=== PATIENT | male | born 1950 | race Caucasian/White ===

== ENCOUNTER → 2020-10-24 12:58 | Outpatient (CLI) | payer MEDICARE, SELFPAY ==
--- NOTE | ~2020-10-24 | MR_ITS ---
EXAMINATION: MR lumbar spine wo con EXAM DATE: 10/24/2020 13:39 INDICATION: Worsening left-sided sciatica there is low back, left leg pain. TECHNIQUE: Multi-sequential, multiplanar MR images of the lumbar spine were obtained without contrast . Sagittal T1, T2, T2 fat saturation images. Axial T2 weighted images. There is no prior study for comparison. FINDINGS: There is 3 mm anterolisthesis L4 on L5 without spondylolysis. Severe facet arthropathy at t his level with a synovial cyst projecting internally from the left facet joint contributing to severe central canal and severe left lateral recess stenosis. Overall mild diffuse loss of disc height L1-L 5. 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 The conus medulla ris terminates at the L1/2 level and has normal signal intensity and morphology. There are no suspic ious marrow signal abnormalities. Paraspinal soft tissue is unremarkable. Level by level evaluation: T12-L1: Disc does not extend beyond the endplate margin. Facet arthropathy: None. Neural foraminal stenosis: No stenosis. Central canal stenosis: No stenosis. L1-L2: There is a mild diffuse disc bulge. Facet arthropathy: Mild. Neural foraminal stenosis: Mild left. Central canal stenosis: Mild. L2-L3: There is a minimal diffuse disc bulge. Facet arthropathy: Mild to moderate. Neural foraminal stenosis: No stenosis. Central canal stenosis: No stenosis. L3-L4: There is a mild diffuse disc bulge. Facet arthropathy: Mild to moderate. Neural foraminal stenosis: Mild bilateral. Central canal stenosis: Mild. L4-L5: There is a moderate diffuse disc bulge. Facet arthropathy: Severe. Left synovial cyst causing severe lateral recess stenosis. Neural foraminal stenosis: Moderate right, mild to moderate left. Central canal stenosis: Severe. L5-S1: There is a mild to moderate diffuse disc bulge. Facet arthropathy: Moderate right, mild to moderate left. Neural foraminal stenosis: Moderate right, mild to moderate left. Central canal stenosis: Mild. IMPRESSION: L4-5 grade 1 anterolisthesis, severe facet arthropathy and left facet synovial cyst causi ng severe central canal and lateral recess stenosis. Reviewed, dictated and finalized at location B. IMPRESSION: L4-5 grade 1 anterolisthesis, severe facet arthropathy and left fac et synovial cyst causing severe central canal and lateral recess stenosis.
== END ==
PROVIDERS: PCP Family Medicine Adolescent Medicine; Visit Provider Family Medicine Adolescent Medicine
DX: M54.42 Lumbago with sciatica, left side (principal)
CPT/HCPCS: 72148

== ENCOUNTER 2021-12-23 10:11 | Emergency (ER) | payer MEDICARE, SELFPAY ==
--- NOTE | 2021-12-23 10:13 | ED.URI ---
HPI - URI/Sore Throat General Chief Complaint: Upper Respiratory Infection Stated Complaint: cough, headache Time Seen by Provider: 12/23/21 10:13 Source: patient Mode of arrival: ambulatory Limitations: no limitations History of Present Illness HPI Narrative: Mr. Arias is a 71-year-old male patient presenting to clinic today with complaints of cough and headache x2 days. He reports he feels as though he has the flu. He reports he has had runny nose, nasal congestion, cough and headache. He denies any known fever or chills MD elicited complaint: cough and other (Headache) Related Data Home Medications Medication Instructions Recorded Confirmed lisinopril 20 tablet 12/23/21 mg-hydrochlorothiazide 12.5 mg tablet Allergies Allergy/AdvReac Type Severity Reaction Status Date / Time No Known Allergies Allergy Verified 12/23/21 10:17 Review of Systems Review of Systems: Pertinent positives per HPI. Patient denies any fever, chills, rash, visual changes, dizziness, shortness of breath, chest pain, palpitations, nausea, vomiting, diarrhea, constipation, abdominal pain, or any urinary issues. PMFSH Comments At the time of my signature, I reviewed and agree with the nursing past medical, surgical, social, and family history. There is no relevant family history pertinent to the patient complaint. Exam Narrative: General: Well-developed, well nourished, in no apparent distress Head: Normocephalic, atraumatic Eyes: Pupils equally round and reactive to light bilaterally, EOM intact, sclera and conjunctive clear, no discharge, lids normal Ears: TMs intact and clear, ear canals clear, no drainage, grossly hearing normal. Nose: Nares patent, clear nasal discharge, no inflammation, no sinus tenderness. Mouth: Oral pharynx without lesions or masses, good dentition, MMM. Post nasal drip Neck: Supple, trachea midline, no enlargement of anterior or posterior cervical nodes, no thyroid masses or goiter palpable. Cardio: Regular rate and rhythm, s1 and s2 normal, no murmur appreciated. Resp: Clear to auscultation bilaterally, no rhonchi, rales, wheezing or rubs Course Course Emergency Course: Portions of this record may have been created with voice recognition software. Level of Care: Express Care Visit Vital Signs Vital signs: Vital Signs Temperature 36.4 C 12/23/21 10:23 Pulse Rate 85 12/23/21 10:23 Respiratory Rate 16 12/23/21 10:23 Blood Pressure 152/70 H 12/23/21 10:23 Pulse Oximetry 100 12/23/21 10:23 Temperature 36.4 C 12/23/21 10:23 Pulse Rate 85 12/23/21 10:23 Respiratory Rate 16 12/23/21 10:23 Blood Pressure 152/70 H 12/23/21 10:23 Pulse Oximetry 100 12/23/21 10:23 Vital signs reviewed MDM - URI/Sore Throat MDM Narrative Medical decision making narrative: At the time of visit patient is resting comfortably on the exam table. Influenza testing was completed in the clinic was negative. I suspect the patient has an upper respiratory infection with postnasal drip. Supportive measures were discussed with the patient he voiced understanding of discharge instructions and agrees to treatment plan. Prescription for prednisone and Tessalon Perles was sent to his pharmacy. Differential Diagnosis Differential diagnosis: Likely upper respiratory infection, otitis media, sinusitis, viral infection, bronchitis, influenza, pharyngitis and other (COVID) Lab Data Labs: Influenza A Screen Negative Reference Range: Negative Influenza B Screen Negative Reference Range: Negative Discharge Plan Discharge Clinical Impression: PND (post-nasal drip) Upper respiratory infection Qualifiers: URI type: unspecified URI Qualified Code(s): J06.9 - Acute upper respiratory infection, unspecified Patient Disposition: Home, Self-Care Condition: Sta
[2021-12-23 10:23] VITALS: BP 152/70; PULSE 85; RESP 16; TEMP 36.4; O2SAT 100
== END 2021-12-23 10:52 | disposition home or self-care (01) ==
PROVIDERS: Emergency Provider Nurse Practitioner Family
DX: R09.82 Postnasal drip (principal); J06.9 Acute upper respiratory infection, unspecified; I10 Essential (primary) hypertension
CPT/HCPCS: 87804; 99213; G0463

== ENCOUNTER 2024-03-02 04:27 | Emergency (ER) | payer MEDICARE, SELFPAY ==
--- NOTE | ~2024-03-02 | CT_ITS ---
CT ANGIOGRAM NECK AND HEAD History: Vertigo. Technique: Axial noncontrast imaging of the brain was performed. Serial spiral axial images through t he head and neck were then obtained during arterial phase IV injection of 100 cc of Omnipaque 350. 3- D postprocessing and MIP images were then reconstructed on the remote workstation. Dose reduction marti hnique was used on this scan by utilizing automated exposure control and iterative reconstruction marti hnique. The dose-length product (DLP) was 2015.12 mGy-cm. CTA neck findings: Bilateral vertebral arteries are patent. Bilateral common carotid, internal carot id, and external carotid arteries are patent. No large vessel occlusion or stenosis. No aneurysm. The proximal right internal carotid artery demonstrates 0% stenosis relative to the normal distal artery lumen diameter. The proximal left internal carotid artery demonstrates 0% stenosis relative to the n ormal distal artery lumen diameter. CTA head findings: Distal vertebral arteries, basilar artery, and posterior cerebral arteries are pat ent. Distal internal carotid arteries, middle cerebral arteries, and anterior cerebral arteries are p atent. No large vessel occlusion or stenosis. No aneurysm. Axial noncontrast imaging of the brain is unremarkable. No acute infarct or intracranial hemorrhage, or mass lesion identified. Ghotra-white differentiation preserved. No mass effect or midline shift. Jesús tricles and subarachnoid spaces are nondilated. Paranasal sinuses and mastoid air cells are clear. Ca lvarium intact. Impression: No significant abnormality seen. Reviewed, dictated and finalized at [facility]. MINER Impression: No significant abnormality seen.
[2024-03-02 04:24] VITALS: BP 153/79; PULSE 73; RESP 14; TEMP 36.7; O2SAT 100
--- NOTE | 2024-03-02 04:29 | ECG_ITS ---
Test Date: 2024-03-02 04:31:36 Measurements Intervals [place] Rate: 71 P: 63 CA: 228 QRS: 52 QRSD: 112 T: 72 QT: 388 QTc: 423 Interpretive Statements SINUS RHYTHM WITH FIRST DEGREE AV BLOCK No previous ECG available for comparison Electronically Signed On 03-02-2024 10:45:28 STRATEGY ANALYST by Torsten Escudero M.D.
[2024-03-02 04:31] VITALS: PULSE 70
[2024-03-02 04:38] LABS: Basophils Percent Auto 0.5 % (0.2-1.2); Eosinophils Absolute Auto 0.1 K/mm3 (0-0.3); Eosinophils Percent Auto 1.4 % (0-4.4); Hematocrit 38.7 % (42.0-52.0); Hemoglobin 13.5 g/dL (14.0-18.0); Immature Granulocyte Absolute 0.02 K/mm3 (0.00-0.031); Immature Granulocyte Percent A 0.3 % (0-0.5); Lymphocytes Absolute Auto 1.09 K/mm3 (0.9-3.2); Lymphocytes Percent Auto 13.6 % (18.3-44.2); Mean Corpuscular HGB Conc 34.9 g/dl (32-36); Mean Corpuscular Hemoglobin 32.9 pg (26-34); Mean Corpuscular Volume 94.4 fl (80-100); Mean Platelet Volume 9.5 fl (7.4-10.4); Monocytes Absolute Auto 0.5 K/mm3 (0.1-0.6); Monocytes Percent Auto 6.3 % (2.6-8.5); Neutrophils Absolute Auto 6.2 K/mm3 (1.3-6.7); Neutrophils Percent Auto 77.9 % (45.5-73.1); Platelet Count Result 218 k/mm3 (150-375); Red Cell Distribution Width 12.3 % (11.5-14.5)
[2024-03-02] MEDS: ONDANSETRON INJ 4 MG/2 ML VIAL IV PUSH (04:39)
--- NOTE | 2024-03-02 04:42 | PC.NURSE ---
MECLIZINE NOT ADMINISTERED AT THIS TIME D/T PT SEVERE NAUSEA. ZOFRAN GIVEN IVP PER ORDERS.
[2024-03-02 04:50] LABS: Alanine Aminotransferase 16 U/L (6-50); Albumin Level 3.7 g/dL (3.5-5.1); Alkaline Phosphatase 83 U/L (38-126); Anion Gap 7 mmol/L (4-12); Aspartate Amino Transferase 24 U/L (17-59); Bilirubin,Total 0.6 mg/dL (0.2-1.3); Blood Urea Nitrogen 17 mg/dL (9-20); Calcium 8.3 mg/dL (8.4-10.2); Carbon Dioxide 24 mmol/L (22-30); Chloride 102 mmol/L (98-107); Estimated CRCL calculation 66 ml/min; Estimated Glomerular Filt Rate > 60; Glucose 140 mg/dL (65-110); Magnesium 1.9 mg/dL (1.6-2.3); Potassium 4.1 mmol/L (3.4-5.0); Sodium 133 mmol/L (137-145)
[2024-03-02] MEDS: METOCLOPRAMIDE HCL INJ 10 MG/2 ML VIAL IV PUSH (05:13)
[2024-03-02] MEDS: diphenhydrAMINE HCl INJ 50 MG/ML VIAL 25 MG IV PUSH (05:13)
--- NOTE | 2024-03-02 05:18 | ED_ITS ---
HPI - Dizziness General Chief Complaint: Dizziness Stated Complaint: DIZZINESS, N/V SINCE 2100. History of Present Illness HPI Narrative: Patient is a 73-year-old male who presents to the emergency department this morning complaining of severe dizziness with nausea and vomiting. Patient states that symptoms started initially at 9:00 p.m. last night and at that time patient took a meclizine with improvement of his symptoms. Patient was able to fall asleep but woke up at 3:00 a.m. with severe dizziness and persistent nausea/vomiting. Patient states that he feels that the entire room is spinning and admits that the dizziness is precipitated with movement. Admits that he in the past he has had 2 episodes of similar vertigo. States that he has been dealing with some ringing behind his right ear and states that he recently did travel by plane approximately 1 week ago which may have precipitated his symptoms. Denies any focal weakness, numbness and tingling. Related Data Home Medications ?Medication ?Instructions ?Recorded ?Confirmed ?Last Taken ?Type lisinopril 20 tablet 12/23/21 Unknown History mg-hydrochlorothiazide 12.5 mg tablet Allergies Allergy/AdvReac Type Severity Reaction Status Date / Time No Known Allergies Allergy Verified 12/23/21 10:17 Review of Systems 2 Review of Systems: All systems are reviewed and are negative unless stated otherwise in the HPI. Exam 2 Narrative: General: Alert, awake, afebrile, in no acute distress. HEENT: PERRL, no rhinorrhea, no post nasal drip, oropharynx clear. Neck: Trachea midline, no JVD, no lymphadenopathy. Cardiovascular: Regular rate and rhythm, no murmurs, rubs or gallops, no peripheral edema. Respiratory: Clear to auscultation bilaterally, no tachypnea, no wheezing, no rhonchi, no rubs, no respiratory distress. Abdomen: Soft, nontender, nondistended, no rebound, no guarding, no peritoneal signs. Musculoskeletal: No joint swelling or deformity, normal muscle tone. Skin: No rashes or petechia, no signs of infection. Psychiatric: Alert and oriented, normal behavior and judgment for situation. Neurological: Alert and oriented to person, place, and time. Follows all commands. No focal deficits, 5/5 motor strength in the bilateral upper and lower extremity, sensation intact and equal in bilateral upper and lower extremity, speech is clear and fluent. Course Vital Signs Vital signs: Vital Signs Temperature 98.1 F 03/02/24 04:24 Pulse Rate 73 03/02/24 04:24 Respiratory Rate 14 03/02/24 04:24 Blood Pressure 153/79 H 03/02/24 04:24 Pulse Oximetry 100 03/02/24 04:24 Oxygen Delivery Room Air 03/02/24 04:24 Temperature 98.1 F 03/02/24 04:24 Pulse Rate 70 03/02/24 07:54 Respiratory Rate 16 03/02/24 07:54 Blood Pressure 134/73 03/02/24 07:54 Pulse Oximetry 99 03/02/24 07:54 Oxygen Delivery Room Air 03/02/24 04:24 MDM - Dizziness MDM Narrative Medical decision making narrative: The patient was evaluated by myself in the emergency department. History is obtained from patient who is an independent historian and physical exam was performed. External medical records were reviewed at this time. IV was established and pertinent tests were ordered. Patient was administered 4 mg of IV Zofran for nausea/vomiting. Patient continues to complain of nausea and vomiting and at this time was administered 25 mg of IV Benadryl and 10 mg of IV Reglan. Patient was also administered 25 mg of oral meclizine. EKG was obtained which revealed sinus rhythm rate of 71 beats per minute, no evidence of acute ischemia. EKG was independently interpreted by me and is currently pending official cardiology read. Laboratory results obtained revealing no acute process. Imaging studies obtained included CT brain without IV contrast and CT angiogram head and neck which was independently interpreted by me revealing no acute process, which is pending final radiology interpretation. Differential diagnosis considerations include peripheral versus central vertigo, acute viral syndrome gastroenteritis. Comorbidities impacting this visit include history of vertigo. I have evaluated and discussed social determinants of health with the patient that could potentially impact subsequent diagnosis and treatment plans. On repeat assessment of the patient, reevaluation revealed that the patient is doing well and is in no acute distress. Patient symptoms have improved since he arrived to our emergency department. Repeat vital signs were all reviewed and noted to be stable. Differential diagnosis and treatment plan were discussed with the patient at bedside. Patient agrees with discussion and after shared medical decision making agrees with discharge. All questions were answered to the patient's satisfaction. Patient will follow up with ENT in 3-5 days. Patient was provided with strict return precautions and instructed to return to the emergency department if any new or worsening symptoms develop. The patient was discharged in stable condition. Lab Data 03/02/24 04:33 03/02/24 04:33 Labs: Lab Results 03/02/24 Range/Units 04:33 WBC 8.0 (4.5-10.0) K/mm3 RBC 4.10 L (4.6-6.20) M/mm3 Hgb 13.5 L (14.0-18.0) g/dL Hct 38.7 L (42.0-52.0) % MCV 94.4 (80-100) fl MCH 32.9 (26-34) pg MCHC 34.9 (32-36) g/dl RDW 12.3 (11.5-14.5) % Plt Count 218 (150-375) k/mm3 MPV 9.5 (7.4-10.4) fl Immature Gran % (Auto) 0.3 (0-0.5) % Neut % (Auto) 77.9 H (45.5-73.1) % Lymph % (Auto) 13.6 L (18.3-44.2) % [place] % (Auto) 6.3 (2.6-8.5) % Eos % (Auto) 1.4 (0-4.4) % Baso % (Auto) 0.5 (0.2-1.2) % Lymph # (Auto) 1.09 (0.9-3.2) K/mm3 [place] # (Auto) 0.5 (0.1-0.6) K/mm3 Eos # (Auto) 0.1 (0-0.3) K/mm3 Baso # (Auto) 0.0 (0.0-0.1) K/mm3 Abs Immat Gran (auto) 0.02 (0.00-0.031) K/mm3 Absolute Neuts (auto) 6.2 (1.3-6.7) K/mm3 Absolute Nucleated RBC 0.000 (0.0-0.012) K/mm3 Nucleated RBC % 0.0 (0.0-0.2) % Sodium 133 L (137-145) mmol/L Potassium 4.1 (3.4-5.0) mmol/L Chloride 102 (98-107) mmol/L Carbon Dioxide 24 (22-30) mmol/L Anion Gap 7 (4-12) mmol/L BUN 17 (9-20) mg/dL Creatinine 0.88 (0.7-1.3) mg/dL Estim Creat Clear Calc 66 ml/min Estimated GFR > 60 (59 - ) Glucose 140 H (65-110) mg/dL Calcium 8.3 L (8.4-10.2) mg/dL Magnesium 1.9 (1.6-2.3) mg/dL Total Bilirubin 0.6 (0.2-1.3) mg/dL AST 24 (17-59) U/L ALT 16 (6-50) U/L Alkaline Phosphatase 83 (38-126) U/L Total Protein 6.0 L (6.3-8.2) g/dL Albumin 3.7 (3.5-5.1) g/dL Discharge Plan Discharge Clinical Impression: Benign paroxysmal positional vertigo Patient Disposition: Home, Self-Care Condition: Improved Instructions: Antibiotic Form, Benign Paroxysmal Positional Vertigo (ED) Additional Instructions: Please follow-up with the ENT doctor you were provided with today within the next 3-5 days. Return to the emergency department if any new or worsening symptoms develop. Use the prescribed ODT Zofran as needed for nausea/vomiting along with the meclizine. Patient Language: Maltese Prescriptions: New ondansetron 4 mg tablet,disintegrating 4 mg PO Q8H PRN (Reason: nausea and vomiting) Qty: 10 0RF No Action lisinopril-hydrochlorothiazide 20-12.5 mg tablet benzonatate 200 mg capsule 200 mg PO TID 7 Days Qty: 21 0RF prednisone 20 mg tablet 40 mg PO DAILY 5 Days Qty: 10 0RF Follow-up/Referrals: Howard Luo MD [Physician] - 3 Days UNKNOWN,DOCTOR [Primary Care Provider] - Time of Disposition: 06:26
[2024-03-02] MEDS: MECLIZINE HCL 25 MG TABLET PO (05:44)
[2024-03-02 06:40] VITALS: BP 139/80; PULSE 75; RESP 16; O2SAT 97
--- NOTE | 2024-03-02 06:49 | PC.NURSE ---
Attempted to ambulate pt to restroom per MD orders. After sitting up in bed pt became dizzy and reported the room felt as if it was spinning. Pt assisted back into bed and provided urinal. made aware and told this RN to give the pt more time. No further orders given.
[2024-03-02 07:54] VITALS: BP 134/73; PULSE 70; RESP 16; O2SAT 99
--- OUTSIDE RECORDS SUMMARY | 2024-03-04 15:21 | XMS_ITS | Clinical Summary ---
Author Organization [facility] Address [address] [place] [address] Care Team Providers Care Wood Furniture Assembler Name Role Phone Luis Forrester MD Primary Care Provider Allergies No known active allergies Medications acetaminophen (TYLENOL) 500 mg tabletIndicatio ns:Pain Take 1 tablet (500 mg total) by mouth every 6 (six) hours as needed for pain Active lisinopril-hydr oCHLOROthiazide (ZESTORETIC) 20-12.5 mg per tablet Take 1.5 tablets by mouth every morning 135 tablet 3 4 Active sildenafiL (VIAGRA) 50 mg tablet Take 1 tablet (50 mg total) by mouth as needed for erectile dysfunction 30 tablet 5 4 Active atorvastatin (LIPITOR) 20 mg tablet Take 1 tablet (20 mg total) by mouth daily 90 tablet 4 4 12/04/19 25 Active Active Problems Problem Noted Date Diagnosed Date Primary hypertension 12/03/2023 Erectile dysfunction 12/03/2023 Synovial cyst of lumbar spine 03/16/2021 Overview (03/16/2021): Added automatically from request for surgery [id number] Encounters Date Type Department Care Team Description 12/03/2023 11:00 AM CDT Lab [facility] [address] MARILYN ROBERTSONSCOTTY CHANDLER [address] Health care maintenance; Vitamin D deficiency; Screening for hyperlipidemia; Screening for diabetes mellitus 12/03/2023 10:00 AM CDT Office Visit [facility] Care [address] [place] [address] Medical Office Building [address], [address] [place] [address] Luis Forrester MD Health care maintenance (Primary Dx); Establishing care with new doctor, encounter for; Vitamin D deficiency; Screening for diabetes mellitus; Screening for hyperlipidemia; Encounter for immunization; Primary hypertension; Erectile dysfunction, unspecified erectile dysfunction type from Last 3 Months Immunizations Name Administration Dates Next Due COVID-19 mRNA (EncrypTix) 0.3 m L (30 mcg) vaccine (12 years and up) 12/03/2023 Hep B Vaccine 03/28/2016,10/10/2015,08/06/2015 Influenza, Quad, Adjuvantate d, Intramuscular 12/14/2021 Influenza, Quadrivalent, Hig h Dose, Preservative Free, Intrr 10/30/2022,10/15/2019 Influenza, Trivalent, Adjuva nted, Intramuscular 11/06/2018,11/19/2017 Influenza, Trivalent, High D ose, Split, Preservative Free, Intramuscular 12/03/2023 Influenza, Trivalent, IM (MDV) 11/07/2016 Influenza, Trivalent, Preser vative Free, Intramuscular 01/30/2016 Pneumococcal Conjugate PCV 13 05/02/2017 Pneumococcal Conjugate Pcv20 12/03/2023 RSV Vaccine, Pref, Recombina nt, Subunit, Adjuvanted, PF, IM (Arexvy) 12/31/2022 Surgical History Surgery Date Site/Laterality Comments FACET BLOCK LUMBAR SACRAL 1 LEVEL LEFT 12/11/2020 Le ft TRIGGER FINGER RELEASE 02/10/2009 - 02/09/2010 Right COLONOSCOPY CATARACT EXTRACTION 05/11/2021 Medical History Medical History Date Comments Abnormal ECG Hypertension Family History Medical History Relation Name Comments COPD Father Cyrus Arias Cancer Maternal Grandfather Cancer Maternal Grandmother Cancer Mother Britni Arias lung Cancer Paternal Grandfather Cancer Paternal Grandmother Brain Tumor Son Cesar Arias childhood Cancer Son Cesar Arias Relation Name Status Comments Father Cyrus Arias (Age 88) Maternal Grandfather Maternal Grandmother Mother Britni Arias (Age 82) Paternal Grandfather Paternal Grandmother Son Cesar Arias Alive Social History Tobacco Use Types Packs/Day Years Used Date Smoking Tobacco: Never Cigarettes Smokeless Tobacco: Never Tobacco Cessation:Counseling Given: Not Answered Alcohol Use Standard Drinks/Week Comments Never 0 (1 standard drink = 0.6 oz pur e alcohol) AUDIT-C Answer Date Recorded Q1: How often do you have a drink containing alc ohol? Never 10/12/2021 Average Number of Drinks Not on file 022 Q3: How often do you have si x or more drinks on one occasion? 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 Oxygen Saturation 98% 12/03/2023 9:56 AM CDT Inhaled Oxygen Concentration - - Weight 77.2 kg (170 lb 3.2 oz) 12/03/2023 9:56 A M CDT Height 175.3 cm (5' 9 ) 12/03/2023 9:56 AM CDT Body Mass Index 25.13 12/03/2023 9:56 AM CDT Plan of Treatment Health Maintenance Due Date Last Done Comments Colon Cancer Screening-Colonoscopy 1950 Hepatitis C Screening 1950 DTaP/Tdap/Td Vaccine (1 - Tdap) 10/15/1962 Zoster Vaccine (1 of 2) 10/15/2001 Fall Risk Assessment 04/03/2022 04/03/2021 Depression Screening 12/02/2024 12/03/2023 Well Visit 65+ 12/02/2024 12/03/2023 Covid-19 Vaccine Completed 12/03/2023, , 12/14/2021, Additional history exists Influenza Vaccine Completed 12/03/2023, , 12/14/2021, Additional history exists Pneumococcal vaccine 65+ Completed 12/03/2023, 04/11 Procedures Procedure Name Priority Date/Time Associated Diagnosis Comments EGFR Routine 12/03/2023 11:27 AM CDT Health care maintenance HEMOGLOBIN A1C Routine 12/03/2023 11:27 AM CDT Screening for diabetes mellitus LIPID PANEL Routine 12/03/2023 11:27 AM CDT Screening for hyperlipidemia BASIC METABOLIC PANEL Routine 12/03/2023 11:27 AM CDT Health care maintenance VITAMIN D 25 HYDROXY Routine 12/03/2023 11:27 AM CDT Vitamin D deficiency CBC WITHOUT DIFFERENTIAL Routine 12/03/2023 11:27 AM CDT Health care maintenance from Last 3 Months Results * eGFR (12/03/2023 11:27 AM CDT) eGFR 80 >=60 mL/min/1. 73 m2 Comment: Interpretive Data Reference Interval Normal ?>/= 90 mL/min/1.73m2 Mildly decreased* ? 60 - 89 mL/min/1.73m2 Mildly to moderately decreased ?45 - 59 mL/min/1.73m2 Moderately to severely decreased ??30 - 44 mL/min/1.73m2 Severely decreased ?15 - 29 mL/min/1.73m2 Kidney Failure ?< 15 ??mL/min/1.73m2 *Relative to young adult level Estimated glomerular filtration rate is determined by the 2020 CKD-EPI equation recommended by the National Kidney Foundation (A Unifying Approach to GFR Estimation: Recommendations of the NKF-ASK Task Force on Reassessing the Inclusion of Race in Diagnosing Kidney Disease, JASN 202). The CKD-EPI equation should not be used for patients with unstable renal function and has not been validated in children and those over 70. Current interpretive data was last reviewed 2020. Blood 12/03/2023 11:2 7 AM CDT 12/03/2023 11:34 AM CDT Luis Forrester MD LAB BLOOD ORDERABLES F inal Result Performing Organization Address [facility] Co de Phone Number BRIANNA VEGA [address] [address] [facility] [employer] [place], [place] [id number] * Vitamin D 25 hydroxy (12/03/2023 11:27 AM CDT) Pathologist [facility] Vitamin D 25-OH 35 30 - 80 ng/mL Blood 12/03/2023 11:2 7 AM CDT 12/03/2023 11:34 AM CDT Luis Forrester MD LAB BLOOD ORDERABLES F inal Result Performing Organization Address [facility] de Phone Number BRIANNA VEGACH [address] [address]. [facility] [employer] [place], [place] [id number] * (ABNORMAL) CBC without differential (12/03/2023 11:27 AM CDT) [facility] WBC 6.1 3.8 - 9.9 K/cumm Hgb 13.9 13.0 - 17.5 g/dL [facility] Hct 40.2 38.9 - 50.3 % [facility] Plt 219 150 - 400 K/cumm [facility] MPV 9.4 9.1 - 12.3 fL [facility] RBC 4.25(L) 4.30 - 5.80 M/cumm [facility] MCV 94.6 81.3 - 96.4 fL [facility] MCH 32.7 27.1 - 33.3 pg [facility] MCHC 34.6 32.3 - 35.7 g/dL [facility] RDW CV 12.5 11.1 - 14.9 % [facility] RDW SD 43.3 35.7 - 48.1 fL [facility] NRBC abs 0.00 0.00 - 0.01 K/cumm BRIANNA VEGA Blood 12/03/2023 11:2 7 AM CDT 12/03/2023 11:34 AM CDT Luis Forrester MD LAB BLOOD ORDERABLES F inal Result Performing Organization Address [facility] de Phone Number BRIANNA [facility] [address] [facility] [place] [address] * Hemoglobin A1c (12/03/2023 11:27 AM CDT) Pathologist [facility] Hgb A1C 5.6 4.0 - 5.6 % Estimated Average Glucose 114 mg/dL BRIANNA VEGA Comment: The ADA recommends reporting an estimated Average Glucose (eAG) with all Hemoglobin A1c results using the equation derived from a study of 507 normal and diabetic adults. ??Minority populations were underrepresented and children were not included. ?? (Diabetes Care 31:5639-0826, 2008). ??The eAG is not equivalent to a fasting glucose. Blood 12/03/2023 11:2 7 AM CDT 12/03/2023 11:34 AM CDT Luis Forrester MD LAB BLOOD ORDERABLES F inal Result Performing Organization Address [facility] de Phone Number [facility] [address] [facility]. [facility] [employer] [place] [address] * (ABNORMAL) Lipid panel (12/03/2023 11:27 AM CDT) Cholesterol 204(H) 30 - 199 mg/dL Comment: Interpretive Data Ages < or = 19 years ??Acceptable: ? <170 mg/dL ??Borderline high: ??170-199 mg/dL ??High: ? >or= 200 mg/dL Ages > or = 20 years ??Desirable: ?<200 mg/dL ??Borderline high: ??200-239 mg/dL ??High: ? >or= 240 mg/dL Literature References: 1. Expert Panel on Integrated Guidelines for Cardiovascular Health and Risk Reduction in Children and Adolescents. Pediatrics 2011;128:S213 2. NCEP Expert Panel. Circulation 2004;110:227 Current Interpretive Data was last revised on 2017. Triglycerides 43 <=149 mg/dL BRIANNA FARIA Comment: Interpretive Data Ages < or = 9 years ??Acceptable: ? <75 mg/dL ??Borderline high: ??75-99 mg/dL ??High: ? >or= 100 mg/dL Ages 10 to 20 years ??Acceptable: ? <90 mg/dL ??Borderline high: ??90-129 mg/dL ??High: ? >or= 130 mg/dL Ages > or = 20 years ??Desirable: ?<150 mg/dL ??Borderline high: ??150-199 mg/dL ??High: ? 200-499 mg/dL ?Very high: ?? >or= 499 mg/dL Literature References: 1. Expert Panel on Integrated Guidelines for Cardiovascular Health and Risk Reduction in Children and Adolescents. Pediatrics 2011;128:S213 2. NCEP Expert Panel. Circulation 2004;110:227 Current Interpretive Data was last revised on 2017. HDL 73 >=40 mg/dL BRIANNA FARIA Comment: Interpretive Data Ages < or = 19 years ??Acceptable: ? >45 mg/dL ??Borderline low: ?? 40-45 mg/dL ??Low: ? <40 mg/dL Ages > or = 20 years ??Desirable: ?>or= 60 mg/dL ??Low: ? <40 mg/dL Literature References: 1. Expert Panel on Integrated Guidelines for Cardiovascular Health and Risk Reduction in Children and Adolescents. Pediatrics 2011;128:S213 2. NCEP Expert Panel. Circulation 2004;110:227 Current Interpretive Data was last revised on 2017. LDL, calculated 123 <=129 mg/dL BRIANNA FARIA Comment: Interpretive Data Ages < or = 19 years ??Acceptable: ? <110 mg/dL ??Borderline high: ??110-129 mg/dL ??High: ?>or= 130 mg/dL Ages > or = 20 years ??Optimal: ? <100 mg/dL ??Near optimal: ?100-129 mg/dL ??Borderline high: ?? 130-159 mg/dL ??High: ?>160 mg/dL Calculated using the Jan LDL-C estimating equation. This equation was implemented on 2023. Prior to this date LDL-C was estimated using the Friedewald equation. Literature References: 1. Expert Panel on Integrated Guidelines for Cardiovascular Health and Risk Reduction in Children and Adolescents. Pediatrics 2011;128:S213 2. NCEP Expert Panel. Circulation 2004;110:227 3. Jan Garcia et al. AMANDA Cardiol. 2020 June 10;5(5):540-548. doi: 10.1001/jamacardio.2020.0013 Current Interpretive Data was last revised on 2023. Non-HDL Cholesterol 131 mg/dL BRIANNA FARIA Comment: Interpretive Data Ages < or = 19 years ??Acceptable: ?<120 mg/dL ??Borderline high: ??120-144 mg/dL ??High: ?>145 mg/dL Ages > or = 20 years ??When triglycerides are >200 mg/dL, Non-HDL cholesterol is a secondary target of ? therapy with treatment goals that are 30 mg/dL greater than the LDL cholesterol target. ? Literature References: 1. Expert Panel on Integrated Guidelines for Cardiovascular Health and Risk Reduction in Children and Adolescents. Pediatrics 2011;128:S213 2. NCEP Expert Panel. Circulation 2004;110:227 Current Interpretive Data was last revised on 2017. Chol/HDL ratio 3 [facility] Blood 12/03/2023 11:2 7 AM CDT 12/03/2023 11:34 AM CDT Luis Forrester MD LAB BLOOD ORDERABLES F inal Result Performing Organization Address City/[facility]/ZIP Co de Phone Number BRIANNA FARIA [phone] [address]. Department [employer] [place] [address] * Basic metabolic panel (12/03/2023 11:27 AM CDT) [facility] Sodium 136 135 - 145 mmol/L Potassium, pl 4.2 3.3 - 4.9 mmol/L [facility] Chloride 100 97 - 110 mmol/L [facility] CO2 23 22 - 32 mmol/L [facility] Anion gap 13 2 - 15 mmol/L [facility] BUN 11 6 - 25 mg/dL [facility] Creatinine 1.00 0.80 - 1.30 mg/dL [facility] Glucose 93 70 - 199 mg/dL [facility] Comment: Interpretive Data Fasting glucose >/= 126 mg/dl is diagnostic for diabetes. ?? Fasting is defined as no caloric intake for at least 8 hours. Fasting glucose between 100 mg/dl to 125 mg/dl is diagnostic of prediabetes. In a patient with classic symptoms of hyperglycemia or hyperglycemic crisis, a random glucose >/= 200 mg/dl is diagnostic for diabetes. In the absence of unequivocal hyperglycemia, results should be confirmed by repeat testing. The classification and Diagnosis of Diabetes Diabetes Care 2021; 46: S19-S40. Current interpretive data was last revised 2022. Calcium 9.2 8.5 - 10.3 mg/dL [facility] Blood 12/03/2023 11:2 7 AM CDT 12/03/2023 11:34 AM CDT Luis Forrester MD LAB BLOOD ORDERABLES F inal Result Performing Organization Address [facility]/ZIP Co de Phone Number BRIANNA FARIA [address] [address]. Department [employer] [place] [address] from Last 3 Months Insurance MEDICARE [employer] MEDICARE [employer] Care Teams Wood Furniture Assembler Relationship Specialty Start Date End Date Luis Forrester MD [address] [address] PCP - General Internal Medicine 11/27/23
--- OUTSIDE RECORDS SUMMARY | 2024-03-04 15:21 | XMS_ITS | Clinical Summary ---
Author Organization [facility] Address [address] [place] [address]. 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 Gender Identity Not on file Sexual Orientation Not on file Plan of Treatment Health Maintenance Due Date Last Done Comments Colorectal Cancer Screening Colonoscopy (10 Years) 1950 Hepatitis C 10/15/1969 DTaP, Tdap and Td Vaccines ( 1 - Tdap) 10/15/1970 Zoster Vaccines (1 of 2) 10/15/2001 Pneumococcal Vaccine: 65+ Ye ars (1 of 1 - PCV) 10/15/2016 COVID-19 Vaccine ( - 2023-2 5 season) 2023 Influenza Adult (#1) 2023 RSV Immunization or 60+ Years (1 - 1-dose 75+ series) 10/15/2026 Meningococcal Vaccine Aged Out No nicola dariana eligible based on patient's age to complete this topic RSV Immunizations Under 20 Months Aged Out No longer eligible based on patient's age to complete this topic
--- OUTSIDE RECORDS SUMMARY | 2024-03-04 15:21 | XMS_ITS | Referral Summary ---
Author Organization [facility] Address [address] [place] [address] Care Team Providers Care Machine Design Engineer Name Role Phone Luis Forrester MD Primary Care Provider Encounters Date Type Department Care Team Description 12/03/2023 11:00 AM CDT Lab [facility] [id number] [place] [id number] Health care maintenance; Vitamin D deficiency; Screening for hyperlipidemia; Screening for diabetes mellitus 12/03/2023 10:00 AM CDT Office Visit [facility] Care [address] [place] [address] Medical Office Building [address], [address] [place] [address] Luis Forrester MD Health care maintenance (Primary Dx); Establishing care with new doctor, encounter for; Vitamin D deficiency; Screening for diabetes mellitus; Screening for hyperlipidemia; Encounter for immunization; Primary hypertension; Erectile dysfunction, unspecified erectile dysfunction type from Last 3 Months Allergies No known active allergies Medications acetaminophen [...] (03/16/2021): Added automatically from request for surgery [id number] Immunizations Name Administration Dates Next Due COVID-19 mRNA (Scoop.it) 0.3 m L (30 mcg) vaccine (12 [...] nt, Subunit, Adjuvanted, PF, IM (Arexvy) 12/31/2022 Social History Tobacco Use Types Packs/Day Years [...] on file Sexual Orientation Not on file Last Filed Vital Signs Vital Sign Reading Time Taken Comments Blood Pressure 147/66 12/03/2023 9:56 AM CDT Pulse 61 12/03/2023 9:56 AM CDT Temperature 36.3 ??C (97.4 ??F) 12/03/2023 9:56 AM CD T Respiratory Rate 16 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 The CKD-EPI equation should not be used for patients with unstable renal function and has not been validated in children and those over 70. Current interpretive data was last reviewed 2020. Blood 12/03/2023 11:2 7 AM CDT 12/03/2023 11:34 AM CDT Luis Forrester MD LAB BLOOD ORDERABLES F inal Result Performing Organization Address [facility] Co de Phone Number BRIANNA [facility] [address] [address] [employer] [place], [place] [id number] * Vitamin D 25 hydroxy (12/03/2023 11:27 AM CDT) Vitamin D 25-OH 35 30 - 80 ng/mL Blood 12/03/2023 11:2 7 AM CDT 12/03/2023 11:34 AM CDT Luis Forrester MD LAB BLOOD ORDERABLES F inal Result Performing Organization Address [facility] Co de Phone Number BRIANNA [facility] [phone] [address] Department [place] [address] * (ABNORMAL) CBC without differential (12/03/2023 11:27 AM CDT) WBC 6.1 3.8 - 9.9 K/cumm Hgb 13.9 13.0 - 17.5 g/dL [facility] Hct 40.2 38.9 - 50.3 % [facility] Plt 219 150 - 400 K/cumm BRIANNA MEZASARAHI MPV 9.4 9.1 - 12.3 fL BRIANNA MEZASARAHI RBC 4.25(L) 4.30 - 5.80 M/cumm [facility] MCV 94.6 81.3 - 96.4 fL [facility] MCH 32.7 27.1 - 33.3 pg [facility] MCHC 34.6 32.3 - 35.7 g/dL [facility] RDW CV 12.5 11.1 - 14.9 % [facility] RDW SD 43.3 35.7 - 48.1 fL [facility] NRBC abs 0.00 0.00 - 0.01 K/cumm [facility] Blood 12/03/2023 11:2 7 AM CDT 12/03/2023 11:34 AM CDT us Luis Forrester MD LAB BLOOD ORDERABLES F inal Result [facility] [address] [facility] [place] [address] * Hemoglobin A1c (12/03/2023 11:27 AM CDT) Hgb A1C 5.6 4.0 - 5.6 % Estimated Average Glucose 114 mg/dL [facility]NA [facility] Comment: The ADA recommends reporting an estimated Average Glucose (eAG) with all Hemoglobin A1c results using the equation derived from a study of 507 normal and diabetic adults. ??Minority populations were underrepresented and children were not included. ?? (Diabetes Care 31:6348-6341, 2008). ??The eAG is not equivalent to a fasting glucose. Blood 12/03/2023 11:2 7 AM CDT 12/03/2023 11:34 AM CDT us Luis Forrester MD LAB BLOOD ORDERABLES F inal Result Performing Organization Address City/State/ZIP Co mi Phone Number B[facility]NA [facility] [address] [facility]. [place] [address] * (ABNORMAL) Lipid panel (12/03/2023 11:27 AM [...] NCEP Expert Panel. Circulation 2004;110:227 3. Jan Dela Cruz al. AMANDA Cardiol. 2020 June 10;5(5):540-548. doi: [...] revised on 2017. Chol/HDL ratio 3 [facility] Blood 12/03/2023 11:2 7 AM CDT 12/03/2023 11:34 AM CDT Luis Forrester MD LAB BLOOD ORDERABLES F inal Result [facility] [address] [facility]. [place] [address] * Basic metabolic panel (12/03/2023 11:27 AM CDT) Sodium 136 135 - 145 mmol/L Potassium, pl 4.2 3.3 - 4.9 mmol/L [facility] Chloride 100 97 - 110 mmol/L [facility] CO2 23 22 - 32 mmol/L [facility] Anion gap 13 2 - 15 mmol/L [facility] BUN 11 6 - 25 mg/dL [facility] Creatinine 1.00 0.80 - 1.30 mg/dL [facility] Glucose 93 70 - 199 mg/dL [facility] Comment: Interpretive Data Fasting glucose >/= 126 [...] 2022. Calcium 9.2 8.5 - 10.3 mg/dL BRIANNA [facility] Blood 12/03/2023 11:2 7 AM CDT 12/03/2023 11:34 AM CDT Luis Forrester MD LAB BLOOD ORDERABLES F inal Result BRIANNA [facility] [address] [facility]. [facility] [place] [address] from Last 3 Months Insurance MEDICARE Myla MEDICARE Myla Care Teams Machine Design Engineer Relationship Specialty Start Date End Date Luis Forrester MD [address] [address] PCP - General Internal Medicine 11/27/23
== END 2024-03-02 08:05 | disposition home or self-care (01) ==
PROVIDERS: Emergency Provider Emergency Medicine
DX: H81.10 Benign paroxysmal vertigo, unspecified ear (principal)
CPT/HCPCS: 36415; 70496; 70498; 80053; 83735; 85025; 93005; 96374; 96375; 99284; A9270; J1200; J2405; J2765; Q9967